=== PATIENT | female | born 1970 | race Caucasian/White ===

== ENCOUNTER 2018-07-25 21:02 | Emergency (ER) | payer SELFPAY ==
[~2018-07-25] VITALS: Ht 165.1 cm; Wt 88.9 kg
[2018-07-25 21:17] VITALS: Ht 165.1 cm; Wt 88.9 kg
[2018-07-25 22:49] VITALS: BP 117/78
== END 2018-07-25 22:49 | disposition home or self-care (01) ==
LOC: ED 21:02
DX: L03.116 Cellulitis of left lower limb (principal)
CPT/HCPCS: J7512